=== PATIENT | male | born 1975 | race Caucasian/White ===

== ENCOUNTER → 2017-06-26 | Emergency (ER) | payer OTHER ==
[~2017-06-26] VITALS: Ht 170.2 cm; Wt 90.7 kg
[~2017-06-26] MED LIST: CLINDAMYCIN HC300 MG PO; MEDROLPACK PO
== END | disposition home or self-care (01) ==
LOC: ER 15:29
DX: J03.90 Acute tonsillitis, unspecified (principal)

== ENCOUNTER 2018-04-24 16:21 | Inpatient (IN) | payer OTHER ==
[~2018-04-24] VITALS: Ht 152.4 cm; Wt 90.7 kg
== END 2018-05-29 14:23 | disposition home or self-care (01) | DRG 342 ==
LOC: ER 16:21 → SEC-K 21:48 → SURH 21:48 → O/R 04-25 06:50 → SURH 04-25 18:52
PROC: 0DTJ4ZZ Resection of Appendix, Percutaneous Endoscopic Approach (ICD-10-PCS; principal; 2018-04-25)
PROC: 0J983ZX Drainage of Abdomen Subcutaneous Tissue and Fascia, Percutaneous Approach, Diagnostic (ICD-10-PCS; 2018-05-01)
PROC: BW20ZZZ Computerized Tomography (CT Scan) of Abdomen (ICD-10-PCS; 2018-05-01)
PROC: 4A033R1 Measurement of Arterial Saturation, Peripheral, Percutaneous Approach (ICD-10-PCS; 2018-05-08)
PROC: BW24ZZZ Computerized Tomography (CT Scan) of Chest and Abdomen (ICD-10-PCS; 2018-05-08)
PROC: 0W993ZZ Drainage of Right Pleural Cavity, Percutaneous Approach (ICD-10-PCS; 2018-05-09)
PROC: 3E0F7GC Introduction of Other Therapeutic Substance into Respiratory Tract, Via Natural or Artificial Opening (ICD-10-PCS; 2018-05-09)
PROC: B246ZZZ Ultrasonography of Right and Left Heart (ICD-10-PCS; 2018-05-11)
PROC: 02HV33Z Insertion of Infusion Device into Superior Vena Cava, Percutaneous Approach (ICD-10-PCS; 2018-05-12)
PROC: 0W993ZZ Drainage of Right Pleural Cavity, Percutaneous Approach (ICD-10-PCS; 2018-05-13)
PROC: BW21ZZZ Computerized Tomography (CT Scan) of Abdomen and Pelvis (ICD-10-PCS; 2018-05-18)
PROC: B54DZZZ Ultrasonography of Bilateral Lower Extremity Veins (ICD-10-PCS; 2018-05-18)
DX: K35.890 Other acute appendicitis without perforation or gangrene (principal); T81.43XA Infection following a procedure, organ and space surgical site, initial encounter; K68.11 Postprocedural retroperitoneal abscess; J90 Pleural effusion, not elsewhere classified; L76.32 Postprocedural hematoma of skin and subcutaneous tissue following other procedure; R09.02 Hypoxemia; J03.80 Acute tonsillitis due to other specified organisms; G62.89 Other specified polyneuropathies; I87.2 Venous insufficiency (chronic) (peripheral)